=== PATIENT | male | born 1950 | race Hispanic/Latino ===

== ENCOUNTER 2022-02-21 06:18 | Observation (INO) | payer MEDICARE ==
[2022-02-16 13:04] LABS: BASOPHILS % (AUTO) 0.8 % (0.0-5.0); EOSINOPHILS % (AUTO) 1.3 % (0.0-8.0); HEMATOCRIT 41.7 % (42-54); LYMPHOCYTES % (AUTO) 30.7 % (21.0-51.0); MEAN CORPUSCULAR HEMOGLOBIN 30.3 pg (27.0-33.0); MEAN CORPUSCULAR HGB CONC 32.6 g/dL (32.0-36.0); MEAN CORPUSCULAR VOLUME 92.9 fL (79-99); MONOCYTES % (AUTO) 7.5 % (3.0-13.0); NEUTROPHILS % (AUTO) 59.3 % (40.0-77.0); PLATELET COUNT (AUTO) 228 K/uL (130-400); RED BLOOD CELL COUNT(AUTO) 4.49 MIL/uL (4.50-6.20); WHITE BLOOD COUNT (AUTO) 7.7 K/uL (4.8-10.8)
[2022-02-16 13:10] LABS: CREATININE 1.4 mg/dL (0.5-1.5); POTASSIUM 4.4 mmol/L (3.5-5.1)
[2022-02-16 13:13] LABS: INR 0.96 (0.85-1.15); PROTHROMBIN TIME 10.5 SEC (9.6-11.6)
[2022-02-16 13:15] LABS: PARTIAL THROMBOPLASTIN TIME 32.3 SEC (26.3-35.5)
[2022-02-20 11:34] VITALS: BP 144/83
[~2022-02-21] VITALS: Ht 170.2 cm; Wt 93.7 kg
[2022-02-21] VITALS (26 sets, daily range): BP systolic 134–172; BP diastolic 70–108
[2022-02-21] MEDS ORDERED: CEFAZOLIN SODIUM 1 GM VIAL ONE ×2 (06:55→15:40)
[2022-02-21] MEDS ORDERED: 0.9%NACL 1000ML 1,000 ML IV ONE (06:55)
[2022-02-21] MEDS ORDERED: GABA300C PO (07:35)
[2022-02-21] MEDS ORDERED: TAMS-1 PO (07:35)
[2022-02-21] MEDS ORDERED: SIMV-46 PO (07:35)
[2022-02-21] MEDS ORDERED: ALLO300T2 PO (07:35)
[2022-02-21] MEDS ORDERED: AMLO-257 PO (07:35)
[2022-02-21] MEDS ORDERED: EMPA10TA PO (07:35)
[2022-02-21] MEDS ORDERED: VITAD50000 PO (07:35)
[2022-02-21] MEDS ORDERED: LOSA100T58 PO (07:35)
[2022-02-21] MEDS ORDERED: ONDANSETRON 4MG INJ ONE (08:18)
[2022-02-21] MEDS ORDERED: LIDOCAINE PF 100MG/5ML (2%) SYRINGE 5ML ONE (08:18)
[2022-02-21] MEDS ORDERED: FENTANYL CITRATE PF 50 MCG/1 ML 2ML VIAL ONE ×2 (08:19→11:31)
[2022-02-21] MEDS ORDERED: DEXAMETHASONE SOD PHOSPHATE 10MG/ML 1ML VIAL ONE (08:19)
[2022-02-21] MEDS ORDERED: ROCURONIUM 10MG/1ML SYR 10 MG/ML ML ONE (08:19)
[2022-02-21] MEDS ORDERED: GLYCOPYRROLATE 1 MG/5 ML SYRINGE ONE (08:19)
[2022-02-21] MEDS ORDERED: NEOSTIGMINE 5MG/5ML SYR IV ONE (08:19)
[2022-02-21] MEDS ORDERED: MIDAZOLAM HCL 1 MG/ML 2ML VIAL ONE (08:19)
[2022-02-21] MEDS ORDERED: PROPOFOL 10 MG/ML 20ML VIAL IV ONE ×2 (08:19→11:57)
[2022-02-21] MEDS ORDERED: PHENYLEPHRINE HCL 10 MG/ML 1ML VIAL IV ONE ×2 (08:23→08:27)
[2022-02-21] MEDS ORDERED: ROPIVACAINE 0.5% 5MG/ML 30ML IJ ONE (08:27)
[2022-02-21] MEDS ORDERED: DEXAMETHASONE SOD PHOSPHATE 4 MG/ML 1ML VIAL ONE (08:27)
[2022-02-21] MEDS ORDERED: TRANEXAMIC ACID 1000MG/10ML ONE (09:59)
[2022-02-21] MEDS ORDERED: CEFAZOLIN SODIUM 2 GM VIAL IV ONE (10:00)
[2022-02-21] MEDS ORDERED: TRANEXAMIC ACID 1000MG/10ML IV ONE (10:10)
[2022-02-21] MEDS ORDERED: HYDROCODONE/ACETAMINOPHEN 5/325 MG TAB PO PRN (12:00)
[2022-02-21] MEDS ORDERED: ONDANSETRON 4MG INJ IVP PRN (12:00)
[2022-02-21] MEDS ORDERED: HYDROCODONE/ACETAMINOPHEN 10/325 MG TAB PO PRN (12:00)
[2022-02-21] MEDS ORDERED: MEPERIDINE-PF 25 MG/ML SYG ONE ×2 (12:09→12:37)
[2022-02-21] MEDS ORDERED: LABETALOL 20MG SYG IV ONE (12:58)
[2022-02-21] MEDS: 0.9%NACL 1000ML 1,000 ML IV SCH ×2 (15:43→22:21)
[2022-02-21] MEDS: TRAMADOL HCL 50 MG TABLET PO SCH ×3 (15:44→22:04)
[2022-02-21] MEDS: CEFAZOLIN SODIUM 1 GM VIAL IVP SCH (15:44)
[2022-02-21] MEDS: GABAPENTIN 300 MG CAPSULE PO SCH ×2 (15:45→22:12)
[2022-02-21] MEDS: ACETAMINOPHEN 500 MG TABLET PO SCH ×2 (15:45→22:00)
[2022-02-21] MEDS: INSULIN HUMULIN R 100 UNIT/ML 3ML SQ SCH ×2 (16:42→22:11)
[2022-02-21] MEDS: FAMOTIDINE 20MG TAB PO SCH (22:09)
[2022-02-21] MEDS: LOSARTAN 100 MG TABLET PO SCH (22:09)
[2022-02-21] MEDS: ASPIRIN 81 MG EC TAB PO SCH (22:09)
[2022-02-21] MEDS: MORPHINE 4 MG SYG IVP PRN (22:23)
[2022-02-22] MEDS: CEFAZOLIN SODIUM 1 GM VIAL IVP SCH (01:48)
[2022-02-22 04:27] VITALS: BP 132/81
[2022-02-22 05:12] LABS: HEMATOCRIT 36.5 % (42-54); MEAN CORPUSCULAR HEMOGLOBIN 30.1 pg (27.0-33.0); MEAN CORPUSCULAR HGB CONC 32.6 g/dL (32.0-36.0); MEAN CORPUSCULAR VOLUME 92.4 fL (79-99); RED BLOOD CELL COUNT(AUTO) 3.95 MIL/uL (4.50-6.20); WHITE BLOOD COUNT (AUTO) 15.5 K/uL (4.8-10.8)
[2022-02-22 05:24] LABS: CREATININE 1.3 mg/dL (0.5-1.5); POTASSIUM 4.3 mmol/L (3.5-5.1)
[2022-02-22] MEDS: ACETAMINOPHEN 500 MG TABLET PO SCH ×2 (06:42→12:04)
[2022-02-22] MEDS: TRAMADOL HCL 50 MG TABLET PO SCH ×2 (06:42→12:05)
[2022-02-22] MEDS: INSULIN HUMULIN R 100 UNIT/ML 3ML SQ SCH ×2 (07:30→11:28)
[2022-02-22 08:00] VITALS: BP 129/72
[2022-02-22] MEDS: 0.9%NACL 1000ML 1,000 ML IV SCH (08:00)
[2022-02-22] MEDS ORDERED: AMLODIPINE 5 MG TAB PO SCH (09:00)
[2022-02-22] MEDS ORDERED: EMPAGLIFLOZIN 10 MG PO SCH (09:00)
[2022-02-22] MEDS ORDERED: ALLOPURINOL 300 MG TABLET PO SCH (09:00)
[2022-02-22] MEDS ORDERED: POLYETHYLENE GLYCOL 3350 17 GM POWD.PACK PO SCH (09:00)
[2022-02-22] MEDS ORDERED: TAMSULOSIN HCL 0.4 MG CAP.ER.24H PO SCH (09:00)
[2022-02-22] MEDS: LOSARTAN 100 MG TABLET PO SCH (09:15)
[2022-02-22] MEDS: ASPIRIN 81 MG EC TAB PO SCH (09:15)
[2022-02-22] MEDS: FAMOTIDINE 20MG TAB PO SCH (09:15)
[2022-02-22] MEDS: MORPHINE 4 MG SYG IVP PRN (09:16)
[2022-02-22] MEDS: GABAPENTIN 300 MG CAPSULE PO SCH ×2 (09:16→12:06)
[2022-02-22 12:00] VITALS: BP 137/67
[2022-02-24] MEDS ORDERED: BISACODYL 10 MG SUPP.RECT RC PRN (12:00)
== END 2022-02-22 14:15 | disposition home or self-care (01) ==
LOC: DAH 06:18 → DAHIP 06:19 → DAH 06:19 → 4BH 13:28
PROVIDERS: ADMIT Orthopaedic Surgery; ATTEND Orthopaedic Surgery
DX: M17.12 Unilateral primary osteoarthritis, left knee (principal); Z20.822 Contact with and (suspected) exposure to COVID-19; M24.562 Contracture, left knee; E78.5 Hyperlipidemia, unspecified; E66.9 Obesity, unspecified; I12.9 Hypertensive chronic kidney disease with stage 1 through stage 4 chronic kidney disease, or unspecified chronic kidney disease; E11.22 Type 2 diabetes mellitus with diabetic chronic kidney disease; N18.9 Chronic kidney disease, unspecified; M10.9 Gout, unspecified; Z79.899 Other long term (current) drug therapy
CPT/HCPCS: 0055T; 27447; 36415; 64447; 76942; 80048; 82948; 85025; 85027; 85610; 85730; 87426; 87641; 93005; 96374; 96375; 96376; 97039; G0378; J0690; J1100; J1815; J2001; J2175; J2250; J2270; J2370; J2405; J2704; J2710; J2795; J3010; J3490; J7030

== ENCOUNTER → 2022-06-16 | Outpatient (CLI) | payer MEDICARE ==
[~2022-06-16] VITALS: Ht 167.6 cm; Wt 89.9 kg
[~2022-06-16] MED LIST: ALLO300T2 PO; AMLO-257 PO; CEFAZOLIN SODIUM 2 GM VIAL IVPB SCH; EMPA10TA PO; GABA300C PO; LACTATED RINGERS 1000ML 1,000 ML IV SCH; LOSA100T58 PO; SIMV-46 PO; TAMS-1 PO; VITAD50000 PO
[2022-06-16 10:41] LABS: BASOPHILS % (AUTO) 0.5 % (0.0-5.0); EOSINOPHILS % (AUTO) 0.7 % (0.0-8.0); HEMATOCRIT 42.9 % (42-54); LYMPHOCYTES % (AUTO) 29.7 % (21.0-51.0); MEAN CORPUSCULAR HEMOGLOBIN 29.3 pg (27.0-33.0); MEAN CORPUSCULAR HGB CONC 31.9 g/dL (32.0-36.0); MEAN CORPUSCULAR VOLUME 91.9 fL (79-99); MONOCYTES % (AUTO) 7.7 % (3.0-13.0); NEUTROPHILS % (AUTO) 60.7 % (40.0-77.0); PLATELET COUNT (AUTO) 278 K/uL (130-400); RED BLOOD CELL COUNT(AUTO) 4.67 MIL/uL (4.50-6.20); RED CELL DISTRIBUTION WIDTH 13.9 % (11.0-15.5); WHITE BLOOD COUNT (AUTO) 7.6 K/uL (4.8-10.8)
[2022-06-16 10:51] LABS: CREATININE 1.2 mg/dL (0.5-1.5); POTASSIUM 4.9 mmol/L (3.5-5.1)
[2022-06-16 11:03] LABS: INR 0.96 (0.85-1.15); PROTHROMBIN TIME 10.5 SEC (9.6-11.6)
[2022-06-16 11:05] LABS: PARTIAL THROMBOPLASTIN TIME 31.3 SEC (26.3-35.5)
[2022-06-19 12:56] VITALS: BP 133/77
== END | disposition home or self-care (01) ==
LOC: DAH 10:00 → EDSTATUS 14:00
PROVIDERS: ATTEND Orthopaedic Surgery
DX: Z01.818 Encounter for other preprocedural examination (principal); M17.11 Unilateral primary osteoarthritis, right knee; Z79.01 Long term (current) use of anticoagulants; Z20.822 Contact with and (suspected) exposure to COVID-19
CPT/HCPCS: 93005; 87426; 80048; 85025; 85610; 85730; 36415; A6260

== ENCOUNTER 2022-10-31 05:45 | Observation (INO) | payer MEDICARE ==
[2022-10-27 10:18] LABS: BASOPHILS % (AUTO) 0.6 % (0.0-5.0); EOSINOPHILS % (AUTO) 1.9 % (0.0-8.0); HEMATOCRIT 42.5 % (42-54); LYMPHOCYTES % (AUTO) 28.1 % (21.0-51.0); MEAN CORPUSCULAR HEMOGLOBIN 31.7 pg (27.0-33.0); MEAN CORPUSCULAR HGB CONC 32.7 g/dL (32.0-36.0); MONOCYTES % (AUTO) 7.3 % (3.0-13.0); NEUTROPHILS % (AUTO) 61.7 % (40.0-77.0); PLATELET COUNT (AUTO) 246 K/uL (130-400); RED BLOOD CELL COUNT(AUTO) 4.38 MIL/uL (4.50-6.20); RED CELL DISTRIBUTION WIDTH 13.8 % (11.0-15.5)
[2022-10-27 10:27] LABS: CREATININE 1.3 mg/dL (0.5-1.5); POTASSIUM 4.2 mmol/L (3.5-5.1)
[2022-10-27 10:32] LABS: INR 0.96 (0.85-1.15); PROTHROMBIN TIME 10.5 SEC (9.6-11.6)
[2022-10-27 10:33] LABS: PARTIAL THROMBOPLASTIN TIME 32.9 SEC (26.3-35.5)
[2022-10-27 10:35] VITALS: BP 134/81
[2022-10-31] VITALS (26 sets, daily range): BP systolic 101–142; BP diastolic 63–83
[~2022-10-31] VITALS: Ht 170.2 cm; Wt 92.0 kg
[~2022-10-31 05:45] MED LIST changes: -CEFAZOLIN SODIUM 2 GM VIAL IVPB SCH; -GABA300C PO; +GABA600T10 PO; -LACTATED RINGERS 1000ML 1,000 ML IV SCH; -SIMV-46 PO; -VITAD50000 PO
[2022-10-31] MEDS ORDERED: 0.9%NACL 1000ML 1,000 ML IV ONE (06:08)
[2022-10-31] MEDS: CEFAZOLIN SODIUM 2 GM VIAL ONE ×2 (06:22→07:47)
[2022-10-31] MEDS ORDERED: TRANEXAMIC ACID 1000MG/10ML ONE (06:31)
[2022-10-31] MEDS ORDERED: DEXAMETHASONE SOD PHOSPHATE 10MG/ML 1ML VIAL ONE (07:18)
[2022-10-31] MEDS ORDERED: LIDOCAINE PF 100MG/5ML (2%) SYRINGE 5ML ONE (07:18)
[2022-10-31] MEDS ORDERED: ONDANSETRON 4MG INJ ONE (07:18)
[2022-10-31] MEDS ORDERED: GLYCOPYRROLATE 1 MG/5 ML SYRINGE ONE (07:18)
[2022-10-31] MEDS ORDERED: SUCCINYLCHOLINE 200MG/10ML SYR ONE (07:18)
[2022-10-31] MEDS ORDERED: PROPOFOL 10 MG/ML 20ML VIAL IV ONE (07:18)
[2022-10-31] MEDS ORDERED: FENTANYL CITRATE PF 50 MCG/1 ML 2ML VIAL ONE (07:19)
[2022-10-31] MEDS ORDERED: NEOSTIGMINE 5MG/5ML SYR IV ONE (07:19)
[2022-10-31] MEDS ORDERED: ROCURONIUM 10MG/1ML SYR 10 MG/ML ML ONE (07:19)
[2022-10-31] MEDS ORDERED: MIDAZOLAM HCL 1 MG/ML 2ML VIAL ONE (07:19)
[2022-10-31] MEDS ORDERED: LIDOCAINE HCL-MPF 2% 10ML AMP IJ ONE (07:51)
[2022-10-31] MEDS ORDERED: ONDANSETRON 4MG INJ IVP PRN (08:00)
[2022-10-31] MEDS ORDERED: POTASSIUM CHLORIDE 20MEQ/100ML 100 ML IV PRN (08:00)
[2022-10-31] MEDS ORDERED: POTASSIUM CHLORIDE 10% ELIXIR 20 MEQ/15 ML UDCUP PO PRN (08:00)
[2022-10-31] MEDS ORDERED: HYDROCODONE/ACETAMINOPHEN 5/325 MG TAB PO PRN (08:00)
[2022-10-31] MEDS ORDERED: KCL 20 MEQ ERTAB PO PRN (08:00)
[2022-10-31] MEDS ORDERED: EPHEDRINE SULFATE 50 MG/ML AMPULE ONE (08:04)
[2022-10-31] MEDS: FAMOTIDINE 20MG TAB PO SCH ×2 (09:00→20:11)
[2022-10-31] MEDS: LOSARTAN 100 MG TABLET PO SCH ×2 (09:00→20:11)
[2022-10-31] MEDS: POLYETHYLENE GLYCOL 3350 17 GM POWD.PACK PO SCH (09:00)
[2022-10-31] MEDS: ALLOPURINOL 300 MG TABLET PO SCH (09:00)
[2022-10-31] MEDS: EMPAGLIFLOZIN 10MG TABLET PO SCH (09:00)
[2022-10-31] MEDS: TAMSULOSIN HCL 0.4 MG CAP.ER.24H PO SCH (09:00)
[2022-10-31] MEDS: GABAPENTIN 300 MG CAPSULE PO SCH ×2 (09:00→20:11)
[2022-10-31] MEDS ORDERED: MEPERIDINE-PF 25 MG/ML SYG ONE ×2 (09:09→10:07)
[2022-10-31] MEDS: ACETAMINOPHEN 1,000 MG/100 ML VIAL IV SCH ×3 (10:01→20:00)
[2022-10-31] MEDS ORDERED: ROPIVACAINE 0.5% 5MG/ML 30ML IJ ONE (11:24)
[2022-10-31] MEDS: AMLODIPINE 5 MG TAB PO SCH (13:06)
[2022-10-31] MEDS: 0.9%NACL 1000ML 1,000 ML IV SCH ×2 (13:06→18:00)
[2022-10-31] MEDS: CEFAZOLIN SODIUM 1 GM VIAL IVP SCH ×2 (13:06→20:11)
[2022-10-31] MEDS: TRAMADOL HCL 50 MG TABLET PO SCH ×4 (13:08→23:56)
[2022-10-31] MEDS: HYDROCODONE/ACETAMINOPHEN 10/325 MG TAB PO PRN (20:12)
[2022-10-31] MEDS: MORPHINE 4 MG SYG IVP PRN (21:36)
[2022-11-01] VITALS: BP 138/79
[2022-11-01] MEDS: MORPHINE 4 MG SYG IVP PRN ×2 (02:16→07:54)
[2022-11-01] MEDS: 0.9%NACL 1000ML 1,000 ML IV SCH (04:00)
[2022-11-01] MEDS: HYDROCODONE/ACETAMINOPHEN 10/325 MG TAB PO PRN ×2 (05:00→20:01)
[2022-11-01 05:25] LABS: HEMATOCRIT 38.3 % (42-54); MEAN CORPUSCULAR HEMOGLOBIN 31.8 pg (27.0-33.0); MEAN CORPUSCULAR HGB CONC 32.6 g/dL (32.0-36.0); MEAN CORPUSCULAR VOLUME 97.5 fL (79-99); RED BLOOD CELL COUNT(AUTO) 3.93 MIL/uL (4.50-6.20); RED CELL DISTRIBUTION WIDTH 13.8 % (11.0-15.5); WHITE BLOOD COUNT (AUTO) 13.7 K/uL (4.8-10.8)
[2022-11-01 05:36] LABS: CREATININE 1.2 mg/dL (0.5-1.5); POTASSIUM 3.9 mmol/L (3.5-5.1)
[2022-11-01] MEDS: TRAMADOL HCL 50 MG TABLET PO SCH ×4 (06:10→23:48)
[2022-11-01] MEDS: FAMOTIDINE 20MG TAB PO SCH ×2 (07:54→20:02)
[2022-11-01] MEDS: LOSARTAN 100 MG TABLET PO SCH ×2 (07:54→20:02)
[2022-11-01] MEDS: ASPIRIN 81 MG EC TAB PO SCH ×2 (07:54→20:02)
[2022-11-01] MEDS: EMPAGLIFLOZIN 10MG TABLET PO SCH (07:54)
[2022-11-01] MEDS: GABAPENTIN 300 MG CAPSULE PO SCH ×2 (07:56→20:02)
[2022-11-01] MEDS: TAMSULOSIN HCL 0.4 MG CAP.ER.24H PO SCH (07:56)
[2022-11-01] MEDS: ALLOPURINOL 300 MG TABLET PO SCH (07:56)
[2022-11-01] MEDS: POLYETHYLENE GLYCOL 3350 17 GM POWD.PACK PO SCH (07:56)
[2022-11-01 08:14] VITALS: BP 148/93
[2022-11-01] MEDS: AMLODIPINE 5 MG TAB PO SCH (11:16)
[2022-11-01 11:52] VITALS: BP 125/85
[2022-11-01 17:35] VITALS: BP 142/85
[2022-11-01 20:00] VITALS: BP 142/88
[2022-11-02] VITALS: BP 143/82
[2022-11-02 04:00] VITALS: BP 132/76
[2022-11-02] MEDS: TRAMADOL HCL 50 MG TABLET PO SCH ×2 (05:18→11:58)
[2022-11-02] MEDS: MORPHINE 4 MG SYG IVP PRN (06:49)
[2022-11-02 08:27] VITALS: BP 119/74
[2022-11-02] MEDS: TAMSULOSIN HCL 0.4 MG CAP.ER.24H PO SCH (08:43)
[2022-11-02] MEDS: POLYETHYLENE GLYCOL 3350 17 GM POWD.PACK PO SCH (08:43)
[2022-11-02] MEDS: ALLOPURINOL 300 MG TABLET PO SCH (08:43)
[2022-11-02] MEDS: FAMOTIDINE 20MG TAB PO SCH (08:43)
[2022-11-02] MEDS: LOSARTAN 100 MG TABLET PO SCH (08:43)
[2022-11-02] MEDS: ASPIRIN 81 MG EC TAB PO SCH (08:43)
[2022-11-02] MEDS: EMPAGLIFLOZIN 10MG TABLET PO SCH (08:43)
[2022-11-02] MEDS: GABAPENTIN 300 MG CAPSULE PO SCH (08:44)
[2022-11-02] MEDS: AMLODIPINE 5 MG TAB PO SCH (11:58)
[2022-11-02] MEDS: HYDROCODONE/ACETAMINOPHEN 10/325 MG TAB PO PRN (12:44)
[2022-11-02 12:45] VITALS: BP 109/67
[2022-11-02 16:40] VITALS: BP 110/84
[2022-11-03] MEDS ORDERED: BISACODYL 10 MG SUPP.RECT RC PRN (08:00)
== END 2022-11-02 17:30 | disposition home or self-care (01) ==
LOC: DAH 05:45 → DAHIP 05:46 → DAH 05:46 → 4AH 11:04
PROVIDERS: ADMIT Orthopaedic Surgery; ATTEND Orthopaedic Surgery
DX: M17.11 Unilateral primary osteoarthritis, right knee (principal); Z20.822 Contact with and (suspected) exposure to COVID-19; I10 Essential (primary) hypertension; E11.9 Type 2 diabetes mellitus without complications; E78.00 Pure hypercholesterolemia, unspecified; E66.9 Obesity, unspecified; Z68.32 Body mass index [BMI] 32.0-32.9, adult; Z96.651 Presence of right artificial knee joint; Z79.899 Other long term (current) drug therapy; Z90.5 Acquired absence of kidney
CPT/HCPCS: 80048 ×2; 85025; 85610; 85730; 87426; 36415 ×2; 93005; 64447; 27447; 96374; 96376 ×3; 96375; 82948 ×11; 97161; 97039 ×5; 97530 ×5; 85027; 97116 ×4; A6260; G0378 ×52; A4663; J7030 ×2; A4649 ×3; A4600; J3010; J0690 ×3; J3490 ×4; J0330; J1100; J2710; J2001; J2250; J2704; J2405; J2270 ×4; J2175 ×2; J2795; A6223; G0168; A6212; C1776 ×4; A5120; A4215; A4223; A4222; A4221